=== PATIENT | female | born 1995 | race Caucasian/White ===

== ENCOUNTER 2019-04-27 14:50 | Emergency (ER) | payer OTHER ==
--- NOTE | 2019-04-27 14:58 | PDOC ---
Rapid Medical Evaluation Time Seen by Provider: 04/27/19 14:55 Medical Evaluation: Allergies Allergy/AdvReac Type Severity Reaction Status Date / Time No Known Allergies Allergy Verified 04/27/19 14:55 04/27/19 14:55 I performed a brief in-person evaluation of this patient. Healthy 24-year-old female LMP 02/11/19 with positive home test. No bleeding/cramping or other complaints. Pertinent physical exam findings: Well-appearing I have ordered the following: Urine hcg Patient counseled that needs activities leader for routine care, however wishes to be seen here today. To proceed to FT for further evaluation. Discharge Disposition - Diagnosis test positive - Referrals - Patient Instructions - Post Discharge Activity
[2019-04-27 14:59] VITALS: BP 101/71; PULSE 92; TEMP 98; BMI 19.1
--- NOTE | 2019-04-27 16:06 | PDOC ---
History of Present Illness - General Chief Complaint: ,Possible Stated Complaint: 9WK [place]/CHECK UP Time Seen by Provider: 04/27/19 14:55 History Source: Patient Exam Limitations: No Limitations Past History - Past Medical History Allergies/Adverse Reactions: Allergies Allergy/AdvReac Type Severity Reaction Status Date / Time No Known Allergies Allergy Verified 04/27/19 14:55 Home Medications: Ambulatory Orders NK [No Known Home Medication] 04/27/19 COPD: No - Reproductive History Is Patient Now?: Yes (#): 2 Para: 0 Therapeutic (s) & number: Yes (1) - Immunization History Immunization Up to Date: Yes - Psycho Social/Smoking Cessation Hx Smoking History: Never smoked Hx Alcohol Use: No Drug/Substance Use Hx: No *Physical Exam - Vital Signs Last Vital Signs Temp Pulse Resp BP Pulse Ox 98.0 F 92 H 18 101/71 100 04/27/19 14:56 04/27/19 14:56 04/27/19 14:56 04/27/19 14:56 04/27/19 14:56 - Physical Exam General Appearance: No: Apparent Distress Respiratory/Chest: positive: Lungs Clear, Normal Breath Sounds. negative: Respiratory Distress Cardiovascular: positive: Regular Rhythm, Regular Rate, S1, S2. negative: Murmur Gastrointestinal/Abdominal: positive: Soft. negative: Tender Integumentary: positive: Normal Color Neurologic: positive: Alert ED Treatment Course - ADDITIONAL ORDERS Additional order review: Laboratory Results 04/27/19 15:26 Urine HCG, Qual Positive Medical Decision Making - Medical Decision Making 24 y/o F with no sig pmh (hx of 1 miscarriage), currently , LNMP , presents seeking care to ED. States she found out via home test around New Years and could not see any doctor as her insurance just became active recently. States she went to the OB floor in the hospital but she was told most of the doctors had already left and that she can come to ED for evaluation. States she was not sure where to go as this is her first time. Patient denies fever, sob, cp, abd pain, n/v, vaginal bleeding, urinary sxs. Patient just seeking care Denies any complaints UCG positive here as well Given no pain or bleeding, not suspicious for ectopic or Will refer to OB for care 04/27/19 16:02 Discharge - Discharge Information Problems reviewed: Yes Clinical Impression/Diagnosis: test positive Condition: Stable Disposition: HOME - Admission No - Additional Discharge Information Prescription Drug Monitoring Program (I-STOP) results: I-STOP not reviewed - Follow up/Referral Referrals: Beth Diaz DO [Staff Physician] - 2 Days - Patient Discharge Instructions - Post Discharge Activity
== END 2019-04-27 16:28 | disposition home or self-care (01) ==
LOC: JERFT 14:50
DX: Z32.01 Encounter for pregnancy test, result positive (principal); Z32.3 Encounter for childcare instruction
CPT/HCPCS: 84703; 99281-25

== ENCOUNTER 2019-11-20 17:05 | Inpatient (IN) | payer OTHER ==
[2019-11-20 18:44] LABS: BASO % 0.2 % (0-2.0); EOS % 0.1 % (0-4.5); HEMATOCRIT 32.5 % (32.4-45.2); HEMOGLOBIN 11.1 GM/dL (10.7-15.3); LYMPH % 11.8 % (8-40); MCH 33.4 pg (25.7-33.7); MCHC 34.2 g/dl (32.0-36.0); MEAN CELL VOLUME 97.6 fl (80-96); MEAN PLT VOLUME 10.6 fl (7.5-11.1); MONO % 4.7 % (3.8-10.2); NEUT % 83.2 % (42.8-82.8); PLATELET COUNT 126 K/MM3 (134-434); RBC 3.33 M/mm3 (3.60-5.2); RDW 13.8 % (11.6-15.6); WHITE BLOOD COUNT 10.8 K/mm3 (4.0-10.0)
[2019-11-20 18:53] LABS: INR 0.88 (0.83-1.09); PROTHROMBIN TIME (PATIENT) 10.4 SEC (9.7-13.0)
[2019-11-20 18:56] LABS: ACTIVATED PTT 22.5 SECONDS (25.2-36.5)
[2019-11-20 19:06] LABS: BLOOD UREA NITROGEN 6.8 mg/dL (7-18); CALCIUM 9.1 mg/dL (8.5-10.1); CREATININE 0.6 mg/dL (0.55-1.3); POTASSIUM 3.6 mmol/L (3.5-5.1)
[2019-11-20] MEDS ORDERED: ELECTROLYTE-148 SOLN 1,000 ML IV SCH (19:30)
[2019-11-20] MEDS ORDERED: BUTORPHANOL TARTRATE 1 MG/ML VIAL IVPB PRN (19:30)
[2019-11-20] MEDS ORDERED: PROMETHAZINE HCL 25 MG/1 ML VIAL IVPUSH ONE (19:30)
--- NOTE | 2019-11-20 19:34 | HP ---
Past Medical History - Primary Care Physician PCP:: Rebecca Higuera - Admission Chief Complaint: labor History Source: Patient Limitations to Obtaining History: No Limitations - Past Surgical History Hx Myomectomy: No Hx Transabdominal Cerclage: No - Smoking History Smoking history: Never smoked - Alcohol/Substance Use Hx Alcohol Use: No Home Medications - Allergies Allergies/Adverse Reactions: Allergies Allergy/AdvReac Type Severity Reaction Status Date / Time No Known Allergies Allergy Verified 11/20/19 13:02 - Home Medications Home Medications: Ambulatory Orders Vitamins (Sjr) - 1 tab PO DAILY 11/20/19 Review of Systems - Review of Systems Constitutional: reports: No Symptoms Eyes: reports: No Symptoms HENT: reports: No Symptoms Neck: reports: No Symptoms Cardiovascular: reports: No Symptoms Respiratory: reports: No Symptoms Gastrointestinal: reports: No Symptoms Genitourinary: reports: No Symptoms Breasts: reports: No Symptoms Reported Musculoskeletal: reports: No Symptoms Integumentary: reports: No Symptoms Neurological: reports: No Symptoms Endocrine: reports: No Symptoms Hematology/Lymphatic: reports: No Symptoms Psychiatric: reports: No Symptoms Physical Exam - Maternity Constitutional: Yes: Well Nourished, No Distress Neck: Yes: WNL Cardiovascular: Yes: WNL Breast(s): Yes: WNL - Abdominal Exam/OB Fundal Height: 40 Number of Fetuses: Single Presentation: Vertex Contractions: Yes Regularity: Regular Intensity: Moderate Monitor Mode: External Heart Rate Location: [facility] Category: I Decelerations: None - Vaginal Exam/OB Vaginal Bleeding: No Dilatation (cm): 2 Amniotic Membrane Status: Intact Presentation: Vertex/Position - Physical Exam Musculoskeletal: Yes: WNL Extremities: Yes: WNL Edema: No Psychiatric: Yes: WNL, Alert, Oriented - Labs Lab Results: CBC, BMP 11/20/19 18:00 11/20/19 18:00 Hemorrhage Risk Assessment - Risk Factors Risk Score: 0 Risk Level: Low Risk Problem List - Problems (1) Labor established Problems reviewed: Yes Code(s): OVH0271 - (2) Postmaturity , 40-42 weeks gestation Problems reviewed: Yes Code(s): O48.0 - POST-TERM Assessment/Plan iup at 40 week labor G1 Cat 1 Plan admit to
[2019-11-20] MEDS ORDERED: BUTORPHANOL TARTRATE 2 MG/ML VIAL ONE (19:38)
[2019-11-20] MEDS ORDERED: PROMETHAZINE HCL 25 MG/1 ML VIAL ONE (19:38)
[2019-11-20 20:57] VITALS: BMI 31.3
--- NOTE | 2019-11-20 22:06 | PN ---
Ante-Partal Exam - Subjective Vital Signs: Vital Signs Temperature 98.3 F 11/20/19 21:00 Pulse Rate 76 11/20/19 21:00 Respiratory Rate 20 11/20/19 21:00 Blood Pressure 112/65 11/20/19 21:00 O2 Sat by Pulse Oximetry (%) Bleeding: No Headache: No Visual changes: No Right upper quadrant pain: No - Contractions Contractions: Yes Regularity: Regular Monitor Mode: External - Exam during Labor Variability: Moderate Category: I Exam: Vaginal Dilatation (cm): 6 Effacement (%): 100 Amniotic Membrane Status: Bulging Presentation: Vertex Station: -1 - Intrapartum Hemorrhage Risk Risk Score: 0 Risk Level: Low Risk - Assessment/Plan Assessment/Plan: Active labor cat 1 plan continue present management
[2019-11-20] MEDS ORDERED: SODIUM CHLORIDE 0.9% P/F 10 ML VIAL IJ ONE (22:51)
[2019-11-20] MEDS ORDERED: FENTANYL/BUPIVACAINE/NS/PF - PCEA - 50 ML DISP.SYRIN EP ONE (22:53)
[2019-11-20] MEDS ORDERED: BUPIVACAINE HCL/PF 0.25% (2.5MG/ML) 10 ML VIAL ONE (22:53)
[2019-11-20] MEDS: FENTANYL/BUPIVACAINE/NS/PF - PCEA - 50 ML DISP.SYRIN EP SCH (23:30)
[2019-11-20] MEDS ORDERED: NALOXONE HCL 0.4 MG/ML VIAL IVPUSH PRN (23:50)
[2019-11-20] MEDS ORDERED: LIDO 2%/EPI 1:200000 PRESRVFRE (20 ML SDVIAL) ONE (23:53)
[2019-11-21] MEDS ORDERED: BENZOCAINE 20% 57 GM BOTTLE TP PRN (01:11)
[2019-11-21] MEDS ORDERED: BISACODYL 10 MG SUPP.RECT PR PRN (01:11)
[2019-11-21] MEDS ORDERED: BENZOCAINE 28 GM HEMORRHOIDAL OINTMENT RC PRN (01:11)
[2019-11-21] MEDS ORDERED: WITCH HAZEL 50% (TUCKS) 40 PAD/JAR PAD TP PRN (01:11)
[2019-11-21] MEDS ORDERED: METHYLERGONOVINE MALEATE 0.2 MG/1 ML AMP IM PRN ×2 (01:11→04:57)
--- NOTE | 2019-11-21 01:11 | PN ---
Ante-Partal Exam - Subjective Subjective: Pt sp epidural and doing well Vital Signs: Vital Signs Temperature 98.2 F 11/20/19 22:00 Pulse Rate 90 11/20/19 22:00 Respiratory Rate 18 11/20/19 22:00 Blood Pressure 115/70 11/20/19 22:00 O2 Sat by Pulse Oximetry (%) Bleeding: No Headache: No Visual changes: No Right upper quadrant pain: No - Contractions Contractions: Yes Regularity: Regular Monitor Mode: External - Exam during Labor Variability: Moderate Category: I Monitor Accelerations: Present Monitor Decelerations: None Exam: Vaginal Dilatation (cm): 9 Effacement (%): 100 Amniotic Membrane Status: Ruptured Amniotic Fluid: Clear Presentation: Vertex Station: -1 - Intrapartum Hemorrhage Risk Risk Score: 0 Risk Level: Low Risk - Assessment/Plan Assessment/Plan: active labor Cat 1 Plan pit aug if needed
[2019-11-21] MEDS ORDERED: OXYTOCIN 20 UNITS in 0.9% NS 20 UNIT/1,000 ML INFUS.BAG IV SCH (01:15)
[2019-11-21] MEDS ORDERED: OXYTOCIN 30 UNITS in 0.9% NS 30 UNIT/500 ML INFUS.BAG IVPB ONE (01:28)
[2019-11-21] MEDS ORDERED: OXYTOCIN 30 UNITS in 0.9% NS 30 UNIT/500 ML INFUS.BAG IVPB SCH (01:30)
[2019-11-21] MEDS ORDERED: FENTANYL/BUPIVACAINE/NS/PF - PCEA - 50 ML DISP.SYRIN EP ONE (03:30)
[2019-11-21] MEDS ORDERED: IBUPROFEN 600 MG TABLET (FP) PO PRN (04:57)
--- NOTE | 2019-11-21 04:57 | PN ---
Ante-Partal Exam - Subjective Subjective: Pt has been pushing w/o any descent Vital Signs: Vital Signs Temperature 98.2 F 11/20/19 22:00 Pulse Rate 90 11/20/19 22:00 Respiratory Rate 18 11/20/19 22:00 Blood Pressure 115/70 11/20/19 22:00 O2 Sat by Pulse Oximetry (%) Bleeding: No Headache: No Visual changes: No Right upper quadrant pain: No - Contractions Contractions: Yes Regularity: Regular Monitor Mode: External - Exam during Labor Variability: Moderate Heart Rate Location: [facility] Category: II Monitor Decelerations: Prolonged Exam: Vaginal Dilatation (cm): FD Effacement (%): 100 Amniotic Membrane Status: Ruptured Presentation: Vertex Station: 0 - Intrapartum Hemorrhage Risk Medium Risk Factors: Prolonged Second Stage Risk Score: 1 Risk Level: Medium Risk - Assessment/Plan Assessment/Plan: intolerance to labor prolonged 2nd stage macosomia 40 week Cat 2 Plan Section notify Peds notify anesthesia peds called
[2019-11-21] MEDS ORDERED: LIDO 2%/EPI 1:200000 PRESRVFRE (20 ML SDVIAL) ONE (04:58)
[2019-11-21] MEDS ORDERED: ceFAZolin SODIUM 1 GM VIAL ONE (05:24)
[2019-11-21] MEDS ORDERED: OXYTOCIN 10 UNITS/ML VIAL ONE (05:36)
[2019-11-21] MEDS ORDERED: MIDAZOLAM HCL 2 MG/2 ML SINGLE DOSE VIAL ONE (05:43)
--- NOTE | 2019-11-21 06:01 | PN ---
Progress Note (short form) - Note Progress Note: i assisted Dr. Higuera at c/section for the entirety of the case.
[2019-11-21] MEDS ORDERED: ONDANSETRON 4 MG/2 ML VIAL IVPUSH PRN (06:36)
[2019-11-21] MEDS ORDERED: ACETAMINOPHEN 1000 MG/100 ML VIAL (NON FORMULARY) IVPB ONE (06:37)
[2019-11-21 06:56] LABS: CORD BASE EXCESS -6.2 mmol/L (0-2); CORD HCO3 19.4 mmHg (20-29); CORD PCO2 38.9 mmHg (30-78); CORD pH 7.315 (7.14-7.44)
[2019-11-21] MEDS ORDERED: ACETAMINOPHEN INJECTION 100 ML IVPB ONE (08:11)
[2019-11-21] MEDS ORDERED: OXYTOCIN 20 UNITS in 0.9% NS 20 UNIT/1,000 ML INFUS.BAG IV ONE (08:11)
[2019-11-21] MEDS: ACETAMINOPHEN 325 MG TABLET (FP) PO PRN ×2 (17:50→23:36)
[2019-11-21] MEDS: IBUPROFEN 600 MG TABLET (FP) PO PRN ×2 (17:53→23:37)
[2019-11-21] MEDS: SIMETHICONE 80 MG TAB.CHEW (FP) PO PRN (23:38)
--- NOTE | 2019-11-22 01:31 | OP ---
Operative Note - Note: Operative Date: 11/21/19 Pre-Operative Diagnosis: Failure to descend. CPD. 40 week Operation: Primary Section low transverse Findings: Live female infant Post-Operative Diagnosis: Same as Pre-op Surgeon: Rebecca Higuera Double Needle Stitcher: Oskar Germain Anesthesia: Epidural Estimated Blood Loss (mls): 600 Operative Report Dictated: Yes
--- NOTE | 2019-11-22 02:27 | OP ---
DATE OF OPERATION: 11/21/2019 PREOPERATIVE DIAGNOSES: Failure to descend. Intrauterine at 40 weeks. Cephalopelvic disproportion. OPERATION: Primary low transverse section. POSTOPERATIVE DIAGNOSES: Failure to descend. Intrauterine at 40 weeks. Cephalopelvic disproportion. Live female infant. SURGEON: Rebecca Higuera MD CHIEF CONTROLLER: Pelon Guzman MD ANESTHESIA: Epidural. ESTIMATED BLOOD LOSS: 600 mL. PROCEDURE: Patient was taken to the operating room, placed in the supine position; prepped and draped in the usual sterile fashion. Timeout was performed in accordance with hospital regulations. Pfannenstiel skin incision was made with the scalpel. Cautery was then used to through layers of abdominal wall to the level of the fascia. The fascia was cut in the midline and cautery was then used to open the fascia in smiling fashion. Kochers were used to bluntly and sharply dissect the rectus muscles. Muscle was split in the midline. Peritoneal cavity was entered and carried up and down. Bladder retractor was then placed and scalpel was then used to make a low transverse uterine incision. Incision was carried upward using the bandage scissors. A live female infant was delivered in the OP position. Mouth and nose suctioning performed. Shoulders were delivered without difficulty. Cord was clamped and cut. was handed to the sinter feeder. Placenta was manually extracted from the uterus. Uterus was exteriorized and cleaned with clean lap pads. Uterine incision was then closed using 0 Vicryl suture; 1st layer continuous and locking, 2nd layer imbricating the 1st layer. Hemostasis was achieved. Uterus interiorized. Abdominal cavity was cleaned with clean lap pads. Peritoneum closed using 0 Biosyn suture. Fascia closed using 0 Vicryl suture in 2 parts. Skin was then closed using 3-0 Vicryl suture after some subcuticulars had been placed using 0 Biosyn suture. The wound was washed and dressed. Patient tolerated procedure well. Steri-Strips were placed. Estimated blood loss 600 mL. REBECCA HIGUERA M.D. [id number]
[2019-11-22] MEDS ORDERED: BISACODYL 10 MG SUPP.RECT RC PRN (04:57)
[2019-11-22] MEDS: SIMETHICONE 80 MG TAB.CHEW (FP) PO PRN ×3 (08:11→20:29)
[2019-11-22] MEDS: IBUPROFEN 600 MG TABLET (FP) PO PRN ×3 (08:12→20:29)
[2019-11-22] MEDS: ACETAMINOPHEN 325 MG TABLET (FP) PO PRN ×3 (08:12→20:30)
[2019-11-22] MEDS: FENTANYL/BUPIVACAINE/NS/PF - PCEA - 50 ML DISP.SYRIN EP SCH (08:22)
[2019-11-22 09:32] LABS: BASO % 0.2 % (0-2.0); EOS % 0.1 % (0-4.5); HEMATOCRIT 27.6 % (32.4-45.2); HEMOGLOBIN 9.1 GM/dL (10.7-15.3); LYMPH % 7.4 % (8-40); MCH 32.8 pg (25.7-33.7); MCHC 33.1 g/dl (32.0-36.0); MEAN CELL VOLUME 98.9 fl (80-96); MEAN PLT VOLUME 9.9 fl (7.5-11.1); MONO % 5.1 % (3.8-10.2); NEUT % 87.2 % (42.8-82.8); PLATELET COUNT 109 K/MM3 (134-434); RBC 2.79 M/mm3 (3.60-5.2); RDW 13.9 % (11.6-15.6)
--- NOTE | 2019-11-22 12:05 | PN ---
Post Note - Post Date of Delivery: 11/21/19 Vital Signs: Vital Signs - 24 hr 11/21/19 11/21/19 11/21/19 13:00 14:00 14:50 Temperature 97.7 F Pulse Rate 85 Respiratory 20 18 18 Rate Blood Pressure 127/78 O2 Sat by Pulse Oximetry (%) 11/21/19 11/21/19 11/21/19 15:00 16:00 17:00 Temperature Pulse Rate Respiratory 20 20 18 Rate Blood Pressure O2 Sat by Pulse Oximetry (%) 11/21/19 11/21/19 11/21/19 17:58 18:00 19:00 Temperature 98.6 F Pulse Rate 100 H Respiratory 18 18 18 Rate Blood Pressure 133/59 L O2 Sat by Pulse 97 Oximetry (%) 11/21/19 11/21/19 11/21/19 20:00 21:00 22:00 Temperature 98.3 F Pulse Rate 80 Respiratory 18 18 18 Rate Blood Pressure 117/72 O2 Sat by Pulse 98 Oximetry (%) 11/21/19 11/22/19 11/22/19 23:00 00:00 01:00 Temperature Pulse Rate Respiratory 18 18 18 Rate Blood Pressure O2 Sat by Pulse Oximetry (%) 11/22/19 11/22/19 11/22/19 02:00 03:00 04:00 Temperature 98.2 F Pulse Rate 87 Respiratory 18 18 18 Rate Blood Pressure 121/78 O2 Sat by Pulse Oximetry (%) 11/22/19 11/22/19 11/22/19 05:00 06:00 09:00 Temperature 98.5 F 97.9 F Pulse Rate 110 H 103 H Respiratory 18 18 18 Rate Blood Pressure 133/84 126/79 O2 Sat by Pulse Oximetry (%) Labs: Laboratory Results - last 24 hr 11/22/19 09:08 WBC 15.0 H RBC 2.79 L Hgb 9.1 L Hct 27.6 L D MCV 98.9 H MCH 32.8 MCHC 33.1 RDW 13.9 Plt Count 109 L MPV 9.9 Absolute Neuts (auto) 13.1 H Neutrophils % 87.2 H Lymphocytes % 7.4 L D Monocytes % 5.1 Eosinophils % 0.1 Basophils % 0.2 Nucleated RBC % 0 - Subjective Subjective: No Complaints - Objective Afebrile: Yes Breast: Not engorged Abdomen: Soft, Non-tender Uterus: Fundus firm Vagina: Scant lochia Extremities: Non-tender - Assessment/Plan (1) Labor established Assessment: Other (PoD 1) Plan: Routine Care
[2019-11-23] MEDS: IBUPROFEN 600 MG TABLET (FP) PO PRN ×3 (09:09→20:23)
[2019-11-23] MEDS: ACETAMINOPHEN 325 MG TABLET (FP) PO PRN ×3 (09:10→20:23)
[2019-11-23] MEDS: SIMETHICONE 80 MG TAB.CHEW (FP) PO PRN ×3 (09:11→20:22)
[2019-11-24] MEDS: SIMETHICONE 80 MG TAB.CHEW (FP) PO PRN ×2 (02:33→08:49)
[2019-11-24] MEDS: IBUPROFEN 600 MG TABLET (FP) PO PRN ×2 (02:33→08:48)
[2019-11-24] MEDS: ACETAMINOPHEN 325 MG TABLET (FP) PO PRN ×2 (02:33→08:47)
[2019-11-24 08:05] LABS: BASO % 0.3 % (0-2.0); EOS % 2.5 % (0-4.5); HEMATOCRIT 22.5 % (32.4-45.2); HEMOGLOBIN 7.5 GM/dL (10.7-15.3); LYMPH % 17.5 % (8-40); MCH 32.6 pg (25.7-33.7); MCHC 33.5 g/dl (32.0-36.0); MEAN CELL VOLUME 97.2 fl (80-96); MEAN PLT VOLUME 9.6 fl (7.5-11.1); MONO % 7.6 % (3.8-10.2); NEUT % 72.1 % (42.8-82.8); PLATELET COUNT 112 K/MM3 (134-434); RBC 2.32 M/mm3 (3.60-5.2); WHITE BLOOD COUNT 6.7 K/mm3 (4.0-10.0)
[2019-11-24 11:46] VITALS: BP 120/77; PULSE 94; TEMP 98.7
--- NOTE | 2019-11-24 12:53 | DS ---
Physical Exam-ASSOCIATE MARKETING MANAGER Vital Signs: Vital Signs Temperature 98.7 F 11/24/19 10:00 Pulse Rate 94 H 11/24/19 10:00 Respiratory Rate 18 11/24/19 10:00 Blood Pressure 120/77 11/24/19 10:00 O2 Sat by Pulse Oximetry (%) 98 11/21/19 22:00 Constitutional: Yes: Well Nourished, No Distress Gastrointestinal: Yes: WNL, Soft ....Post : Yes: Uterus firm, Uterus non-tender Breast(s): Yes: WNL Musculoskeletal: Yes: WNL Extremities: Yes: WNL Labs: CBC, BMP 11/24/19 07:15 11/20/19 18:00 Delivery - Delivery Section: Low Flap Transverse Type of Anesthesia: Epidural EBL (cc): 600 Delivery, Single - Stages of Labor Date 1st Stage Initiatied: 11/20/19 Time 1st Stage Initiated: 19:50 Date of Delivery: 11/21/19 Time of Delivery: 05:39 Time Placenta Delivered: 05:40 - Condition of Infant Preschool Adviser/Veterinarian Epidemiologist Present: Yes Name: Susanne Loja Gender: Female Weight: 7 lb 13 oz Position: Left, OA Total Hours ROM (Hrs/Mins): 4 HOURS/ 37 MINUTES - 1 Minute Total Score: 9 5 Minutes Total Score: 9 - [place] Feeding Plan Initial Plan: Elected not to breastfeed exclusively throughout hospitalization Discharge Summary Problems reviewed: Yes Reason For Visit: LABOR Current Active Problems Labor established (Acute) Postmaturity , 40-42 weeks gestation (Acute) Procedures: Principal: section Condition: Good - Instructions Disposition: HOME - Home Medications Comprehensive Discharge Medication List: Ambulatory Orders Vitamins (Sjr) - 1 tab PO DAILY 11/20/19
--- NOTE | 2019-11-25 14:23 | PATH ---
Surgical Pathology Report Patient Name: ERASTO VIDALES Med. Rec. #: [id number] /Age/Gender: 1995 (Age: 24) / F Account: [id number] Location: [facility] OBS/WINDOWS SUPPORT ENGINEER Taken: 11/21/2019 Received: 11/23/2019 Reported: 11/25/2019 Physicians: Rebecca Higuera M.D. Specimen(s) Received PLACENTA Clinical History 24-year-old , 1 induced Primary [id number] to descend Final Diagnosis PLACENTA, SECTION: 368 G THIRD TRIMESTER PLACENTA WITH TRIVASCULAR UMBILICAL CORD AND UNREMARKABLE PLACENTAL MEMBRANES. Electronically Signed Kathleen Bhardwaj M.D. Gross Description The specimen is received fresh labeled placenta and is a 368 gram, 20.0 x 14.0 x 2.8 cm. placenta with attached membranes and umbilical cord. The attached membranes are chase, translucent with focal opacities and insert marginally. The umbilical cord measures 13.5 cm. in length and averages zero point cm. in diameter. The cord inserts eccentrically, 5 cm. to the nearest margin. No true knots or strictures are identified. Cut surface of the umbilical cord reveals 3 vessels. The surface is farah-blue with minimal fibrin deposition and appropriate caliber vessels. The maternal surface is red-brown with focal defects. Sectioning reveals red-brown, spongy parenchyma. No lesions are identified. Education Teacher sections are submitted in three cassettes as follows: 1- membrane rolls and umbilical cord; 2-3- full thickness sections of placenta. [facility]
== END 2019-11-24 14:45 | disposition home or self-care (01) | DRG 540 ==
LOC: JLDR 17:05 → J3W 11-21 09:00
PROVIDERS: ADMIT Obstetrics & Gynecology; ATTEND Obstetrics & Gynecology
PROC: 10D00Z1 Extraction of Products of Conception, Low, Open Approach (ICD-10-PCS; principal; 2019-11-21)
DX: O48.0 Post-term pregnancy (principal); O63.1 Prolonged second stage (of labor); O66.2 Obstructed labor due to unusually large fetus; Z3A.40 40 weeks gestation of pregnancy; Z37.0 Single live birth; O64.8XX0 Obstructed labor due to other malposition and malpresentation, not applicable or unspecified
CPT/HCPCS: 36415; 36600; 59025; 80048; 82803; 85025; 85610; 85730; 86780; 86850; 86900; 86901; 87389; 88307-TC; J0131; U0003